=== PATIENT | male | born 1965 | race American Indian/Alaskan Native ===

== ENCOUNTER 2016-12-20 13:47 | Emergency (ER) | payer SELFPAY ==
[2016-12-20 14:58] VITALS: BP 138/85
--- NOTE | 2016-12-20 19:23 | XRay Report ---
FINAL REPORT EXAM: XR SHOULDER 2+V RT HISTORY: RT SHOULDER pain TECHNIQUE: Right shoulder three views three images PRIORS: None. FINDINGS: Visualized portion of the right lung appears clear. Bone mineralization appears within normal limits. No acute fracture or subluxation is identified. No gross abnormality is seen in the visualized soft tissues. IMPRESSION: 1. No acute osseous abnormality is identified.
--- NOTE | 2016-12-20 19:56 | Emergency Department Report ---
Upper Extremity - HPI Chief Complaint: Extremity Injury, Upper Stated Complaint: COLLAR BONE SWOLLEN/PAIN Time Seen by Provider: 12/20/16 19:37 Upper Extremity: Right Shoulder (right lateral shoulder pain x 2 yrs no new injury trauma or fall ) Occurred When: >5 Days (2 yrs) Symptoms: Yes Pain with Movement, No Deformity, No Limited Range of Movement, No Numbness, No Weakness, No Swelling, No Bruising/Ecchymosis, No Laceration or Abrasion ED Review of Systems ROS: Stated complaint: COLLAR BONE SWOLLEN/PAIN Other details as noted in HPI Constitutional: denies: chills, fever Eyes: denies: eye pain, eye discharge, vision change ENT: denies: ear pain, throat pain Respiratory: denies: cough, shortness of breath, wheezing Cardiovascular: denies: chest pain, palpitations Endocrine: no symptoms reported Gastrointestinal: denies: abdominal pain, nausea, diarrhea Genitourinary: denies: urgency, dysuria Musculoskeletal: arthralgia, myalgia Skin: denies: rash, lesions Neurological: denies: headache, weakness, paresthesias Psychiatric: denies: anxiety, depression Hematological/Lymphatic: denies: easy bleeding, easy bruising ED Past Medical Hx - Past Medical History Previous Medical History?: No - Surgical History Past Surgical History?: No - Social History Smoking Status: Never Smoker Substance Use Type: None - Medications Home Medications: Home Medications Medication Instructions Recorded Confirmed Last Taken Type Cyclobenzaprine [Flexeril] 10 mg PO TID PRN #30 tablet 12/20/16 Unknown Rx Naproxen [Naprosyn] 500 mg PO BID PRN #60 tablet 12/20/16 Unknown Rx Upper Extremity Exam - Exam General: Vital signs noted. No distress. Alert and acting appropriately. Head and Torso: No HEENT Abnormality, No Neck Tenderness, No Chest/Lungs Abnormality, No Abdominal Tenderness, No Back Tenderness Shoulder Exam: Yes Shoulder Tenderness, Yes Normal Range of Motion in Shoulder, No Clavicle Tenderness, No Shoulder Deformity, No AC Joint Tenderness Arm Exam: No Arm/Humerus Tenderness, No Arm Deformity Elbow: No Elbow Tenderness, No Normal Range of Motion in Elbow, No Elbow Deformity Forearm: No Forearm Tenderness, No Forearm Deformity, No Pain with Pronation, No Pain with Supination Wrist: No Wrist Tenderness, No Normal ROM in Wrist, No Wrist Deformity, No Snuffbox Tenderness, No Pain with Axial Thumb Compression Hand: No Hand Tenderness, No Hand Deformity, No Digit Tenderness, No Normal ROM in Digit(s), No Digit(s) Deformity, No Tendon Dysfunction CMS Exam: No Broken Skin, No Normal Distal Pulses, No Normal Capillary Refill, No Normal Distal Sensation ED Course Vital Signs 12/20/16 14:55 Temperature 98.7 F Pulse Rate 56 L Respiratory 18 Rate Blood Pressure 138/85 O2 Sat by Pulse 99 Oximetry ED Medical Decision Making - Radiology Data Radiology results: report reviewed normal shoulder xray no fracture no soft tissue abnormality - Medical Decision Making pt is a 51 y/o aam with hx of bilat shoulder pain presents for right shoulder pain x 2 yrs pt advises recent released from incarceration and seeking referral to ortho for chronic shoulder pain as he was unable to receive adequate care in [facility] pt denies new injury fall or trauma exam : no deformity no ecchymosis no swelling rom intact without restriction strength 5/5 no numbness no tingling no weakness will refer to primary care for pcp affiliation pt verbalized agreement and understanding with discharge plan. Critical care attestation.: If time is entered above; I have spent that time in minutes in the direct care of this critically ill patient, excluding procedure time. ED Disposition Clinical Impression: Chronic right shoulder pain Arthralgia Qualifiers: Joint pain location: shoulder Laterality: right Qualified Code(s): M25.511 - Pain in right shoulder Disposition: DC-01 TO HOME OR SELFCARE Is pt being admited?: No Does the pt Need Aspirin: No Condition: Good Instructions: Musculoskeletal Pain (ED) Prescriptions: Cyclobenzaprine [Flexeril] 10 mg PO TID PRN #30 tablet PRN Reason: Muscle Spasm Naproxen [Naprosyn] 500 mg PO BID PRN #60 tablet PRN Reason: Pain , Severe (7-10) Referrals: PRIMARY CARE,MD [Primary Care Provider] - 3-5 Days Forms: Work/School Release Form(ED) Time of Disposition: 20:02
== END 2016-12-20 20:17 | disposition home or self-care (01) ==
LOC: ED 13:47
DX: M25.511 Pain in right shoulder (principal); G89.29 Other chronic pain

== ENCOUNTER 2017-05-28 21:08 | Emergency (ER) | payer SELFPAY ==
[2017-05-28] MEDS ORDERED: NACL 0.9% 1000 ML 1,000 ML IV ONE (21:51)
[2017-05-28 22:30] LABS: Basophils % (Auto) 0.4 % (0.0-1.8); Eosinophils % (Auto) 0.3 % (0.0-4.3); Hematocrit 42.5 % (35.5-45.6); Hemoglobin 14.3 gm/dl (11.8-15.2); Lymphocytes % (Auto) 10.5 % (13.4-35.0); Mean Corpuscular HGB Conc 34 % (32-34); Mean Corpuscular Hemoglobin 31 pg (28-32); Mean Corpuscular Volume 92 fl (84-94); Monocytes # (Auto) 0.3 K/mm3 (0.0-0.8); Monocytes % (Auto) 3.3 % (0.0-7.3); Platelet Count 309 K/mm3 (140-440); Red Blood Count 4.63 M/mm3 (3.65-5.03); Red Cell Distribution Width 14.5 % (13.2-15.2)
[2017-05-28 22:40] LABS: INR 1.05 (0.87-1.13)
[2017-05-28 22:41] LABS: Partial Thromboplastin Time 28.2 Sec. (24.2-36.6)
[2017-05-28 23:05] LABS: Alanine Aminotransferase 12 units/L (7-56); Albumin 4.7 g/dL (3.9-5); BUN/Creatinine Ratio 16; Blood Urea Nitrogen 16 mg/dL (9-20); Calcium 9.2 mg/dL (8.4-10.2); Hemolysis Index 7; Lipase 18 units/L (13-60)
[2017-05-29] MEDS ORDERED: PROTONIX PO ONE (08:11)
[2017-05-29] MEDS ORDERED: ZOFRAN ODT PO ONE (08:11)
--- NOTE | 2017-05-29 08:34 | Emergency Department Report ---
HPI - General Chief Complaint: GI Bleed Time Seen by Provider: 05/29/17 08:06 - HPI HPI: The patient is a 52-year-old male who presents for evaluation of nausea, vomiting, and hematemesis. The patient states that yesterday evening he experienced 2 episodes of vomiting yellow mucousy fluid mixed with streaks of blood, greater than 12 hours prior to my evaluation. He states that the episodes occurred after an initial episode of vomiting that occurred immediately after taking a new cough medicine. She states that the cough medicine did not agree with his stomach and cause him to be nauseous and threw up. The patient denies fever, chest pain, dyspnea, hemoptysis, diarrhea, blood in the stool, dark tarry stool, hematuria, epistasis, dysuria, hematuria, flank pain, easy bruising or bleeding, or blood thinner use. ED Past Medical Hx - Past Medical History Previous Medical History?: No - Surgical History Past Surgical History?: No - Social History Smoking Status: Never Smoker Substance Use Type: Alcohol - Medications Home Medications: Home Medications Medication Instructions Recorded Confirmed Last Taken Type Cyclobenzaprine [Flexeril] 10 mg PO TID PRN #30 tablet 12/20/16 Unknown Rx Naproxen [Naprosyn] 500 mg PO BID PRN #60 tablet 12/20/16 Unknown Rx Ondansetron [Zofran ODT TAB] 4 mg PO Q8HR #20 tab.rapdis 05/29/17 Unknown Rx Pantoprazole [Protonix TAB] 20 mg PO QDAY #10 tablet. 05/29/17 Unknown Rx ED Review of Systems ROS: Stated complaint: VOMITING BLOOD Other details as noted in HPI Constitutional: denies: fever ENT: denies: throat or neck pain Respiratory: denies: cough, shortness of breath Cardiovascular: denies: chest pain Endocrine: denies unexplained weight loss or gain Gastrointestinal: denies: abdominal pain reports nausea and vomiting Genitourinary: denies: dysuria Musculoskeletal: denies: leg swelling Skin: denies: rash Neurological: denies: headache Hematological/Lymphatic: denies: easy bleeding or easy bruising Psych: denies sadness or hopelessness Physical Exam - Physical Exam Vital Signs: Vital Signs 05/28/17 05/29/17 05/29/17 21:44 06:33 07:00 Temperature 97.9 F 97.9 F 98.3 F Pulse Rate 68 71 65 Respiratory 18 12 12 Rate Blood Pressure 138/88 Blood Pressure 146/78 122/76 [Left] O2 Sat by Pulse 97 100 99 Oximetry 05/29/17 07:10 Temperature Pulse Rate Respiratory 12 Rate Blood Pressure Blood Pressure [Left] O2 Sat by Pulse 99 Oximetry Physical Exam: General: well-nourished, well-developed, no acute distress Head: Normocephalic, atraumatic Eyes: normal sclera ENT: Mucous membranes are pale and dry Neck: No neck stiffness, no cervical adenopathy Respiratory: Breath sounds equal bilaterally, no wheezing, rales, or rhonchi Cardio: S1 and S2 present, no murmurs, rubs, gallops, capillary refill is delayed Abdomen: Normoactive bowel sounds, soft abdomen, no tenderness whatsoever, no rigidity, no guarding or rebound tenderness Musc: No pitting edema Skin: No rash Neuro: no facial drooping, normal speech Psych: Normal affect ED Course Vital Signs 05/28/17 05/29/17 05/29/17 21:44 06:33 07:00 Temperature 97.9 F 97.9 F 98.3 F Pulse Rate 68 71 65 Respiratory 18 12 12 Rate Blood Pressure 138/88 Blood Pressure 146/78 122/76 [Left] O2 Sat by Pulse 97 100 99 Oximetry 05/29/17 07:10 Temperature Pulse Rate Respiratory 12 Rate Blood Pressure Blood Pressure [Left] O2 Sat by Pulse 99 Oximetry ED Medical Decision Making - Lab Data Result diagrams: 05/28/17 22:06 05/28/17 22:06 - Medical Decision Making The patient was seen and examined by myself. The patient is placed on a environmental monitoring specialist and continuous pulse ox. On initial evaluation, the patient was found to be in no distress. Evaluation orders are placed. The patient given a tablet of Protonix and Zofran for his nausea. Lab results were non-concerning including WBC, hemoglobin, hematocrit, platelet level, coags, electrolytes, renal function, LFTs, lipase. The patient was monitored in the emergency department for greater than 4 hours without any episodes of hematemesis. The patient was reevaluated and reported that their symptoms were markedly improved. The patient is stable for discharge with outpatient follow-up. The patient is given follow-up and return instructions. The patient expressed understanding and agreed with the plan. The patient is discharged in stable condition. Critical care attestation.: If time is entered above; I have spent that time in minutes in the direct care of this critically ill patient, excluding procedure time. ED Disposition Clinical Impression: Nausea and vomiting in adult, Rae-Monroe tear Hematemesis Qualifiers: Nausea presence: with nausea Qualified Code(s): K92.0 - Hematemesis Disposition: - TO HOME OR SELFCARE Is pt being admited?: No Does the pt Need Aspirin: No Condition: Stable Instructions: Acute Nausea and Vomiting (ED), Gastrointestinal Bleeding (ED) Prescriptions: Ondansetron [Zofran ODT TAB] 4 mg PO Q8HR #20 tab.rapdis Pantoprazole [Protonix TAB] 20 mg PO QDAY #10 tablet.dr Referrals: DANAE HOPKINS MD [Primary Care Provider] - 3-5 Days Time of Disposition: 08:29
[2017-05-29 09:16] VITALS: BP 133/87
== END 2017-05-29 09:15 | disposition home or self-care (01) ==
LOC: ED 21:08
DX: R11.2 Nausea with vomiting, unspecified (principal)
CPT/HCPCS: 36415; 80053; 83690; 85025; 85610; 85730; 86850; 86900; 86901; 93005; 93010; Q0162